=== PATIENT | female | born 1995 | race African-American/Black ===

== ENCOUNTER 2023-03-07 18:00 | Outpatient (CLI) | payer OTHER | END 2023-03-07 18:01 | disposition critical access hospital (66) | LOC: EMS 18:00 | DX: R09.89 Other specified symptoms and signs involving the circulatory and respiratory systems (principal); F41.9 Anxiety disorder, unspecified | CPT/HCPCS: A0425; A0427 ==

== ENCOUNTER 2023-03-07 18:32 | Emergency (ER) | payer OTHER ==
[2023-03-07] MEDS ORDERED: CHERRY SYRUP 10 ML UDC PO ONE (18:42)
[2023-03-07] MEDS ORDERED: DEXAMETHASONE 10 MG/ML VIAL PO STA (18:42)
--- NOTE | 2023-03-07 18:46 | ED Physician Documentation ---
History of Present Illness - Stated complaint Stated Complaint: POSS ALLERGIC REACTION - Additonal information Additional information: 27-year-old female is brought to the emergency department for evaluation of concern for anaphylactic reaction. 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 Has not had a reaction now for 6 years. Currently visiting [facility] for the night. She had about 3 bites of food with teriyaki sauce and began to have a sensation of her throat swelling. It was coming in waves. She left her EpiPen in [place]. EMS was summoned. On scene they report that she was alert and anxious. No hypoxia no hives no tongue or lip swelling. EMS philly geovanny a peripheral IV and gave the patient 25 mg of Benadryl. In route to the hospital she began having waves of anxiety and 1 more episode where she thought that her throat may be swelling. She requested EMS to pull out the IV as she found it uncomfortable and they did. At the time of presentation now to the ER patient states that she is feeling much better. She no longer has the sensation of throat swelling. She has normal phonation and normal vitals. No tongue or lip swelling. Patient ingested this with products at 5:20 PM Review of Systems Constitutional: denies: Fever, Chills Eyes: reports: Reviewed and negative Ears: reports: Reviewed and negative Nose: reports: Reviewed and negative Throat: reports: Reviewed and negative Cardiac: reports: Reviewed and negative Respiratory: reports: Reviewed and negative : reports: Reviewed and negative PD PAST MEDICAL HISTORY - Present Medications Home Medications: Ambulatory Orders Medication Instructions Recorded Confirmed EPINEPHrine [Epinephrine] 0.3 mg IJ ONCE PRN #1 each 03/07/23 - Allergies Allergies/Adverse Reactions: Allergies Allergy/AdvReac Type Severity Reaction Status Date / Time ibuprofen Allergy Hives Verified 03/07/23 18:49 PD ED PE NORMAL - General General: Alert and oriented X 3, No acute distress, Well developed/nourished - HEENT HEENT: Atraumatic, Moist mucous membranes, Pharynx benign - Neck Neck: Supple, no meningeal sign, No adenopathy - Cardiac Cardiac: RRR, No murmur - Respiratory Respiratory: No respiratory distress, Clear bilaterally - Abdomen Abdomen: Normal bowel sounds, Soft - Back Back: No CVA TTP - Derm Derm: Normal color, Warm and dry, No rash - Extremities Extremities: No deformity - Neuro Neuro: Alert and oriented X 3, 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 She called 911 and Benadryl was administered because she had a sensation of throat tightening. She never had hives urticaria tongue or lip swelling. Presentation the emergency department the symptoms had resolved. On evaluation here she is feeling markedly better. She was observed for a period of nearly 4 hours from the time of ingestion with no return of symptoms. As such at this time I feel she is stable for discharge home. Prescription for epi was sent with the patient. The usual emergent return precautions were discussed Departure - Departure Disposition: 01 Home, Self Care Clinical Impression: Anaphylaxis Qualifiers: Encounter type: initial encounter Qualified Code(s): T78.2XXA - Anaphylactic shock, unspecified, initial encounter Condition: Stable Record reviewed to determine appropriate education?: Yes Prescriptions: EPINEPHrine [Epinephrine] 0.3 mg IJ ONCE PRN #1 each PRN Reason: Anaphylaxis Comments: You accidentally ingested teriyaki which does have soy products in it. Began to have a sensation that you are throat was swelling. EMS gave you 25 mg of Benadryl and with some time you are feeling a lot better with no evidence of swelling in your airway. You can continue to take Benadryl 25 mg once or twice daily for the next several days as well as Pepcid 20 mg twice daily for the next several days. This helps with the histamine response associated with allergic reactions. However we did give you a single dose of Decadron a steroid here in the ER which should help prevent swelling of the neck several days. I am giving you a prescription for epinephrine this can be filled at any pharmacy of your choosing. With your history of anaphylaxis to soy products, it is important that you always carry your EpiPen with you. Return immediately to the ER or call 911 if you have any new or worsening symptoms or concerns of throat or airway swelling.
[2023-03-07 18:49] VITALS: O2SAT 100
[2023-03-07 21:15] VITALS: BP 99/85
== END 2023-03-07 21:08 | disposition home or self-care (01) ==
LOC: ED 18:32
DX: T78.09XA Anaphylactic reaction due to other food products, initial encounter (principal); X58.XXXA Exposure to other specified factors, initial encounter; Y93.89 Activity, other specified
CPT/HCPCS: 99283; 99284; A9270